=== PATIENT | female | born 1950 | race Caucasian/White ===

== ENCOUNTER → 2018-03-15 09:52 | Outpatient (CLI) | payer MEDICARE, SELFPAY ==
[2018-03-15 11:20] LABS: Calcium 9.4 mg/dL (8.5-10.1); Free T4 (Free Thyroxine) 1.15 ng/dl (0.76-1.46); Thyroid Stimulating Hormone 1.59 uIU/ml (0.358-3.740)
[2018-03-16 20:13] LABS: Thyroid Peroxidase Antibodies 15 IU/mL (0-34)
[2018-03-20 06:12] LABS: Calcitonin 3.2 pg/mL (0.0-5.0)
[2018-03-20 06:14] LABS: Thyroid Stimulating Immunoglob <0.10 IU/L (0.00-0.55)
== END ==
PROVIDERS: PCP Family Medicine; Visit Provider Otolaryngology
DX: E07.9 Disorder of thyroid, unspecified (principal); E01.0 Iodine-deficiency related diffuse (endemic) goiter; J34.2 Deviated nasal septum
CPT/HCPCS: 36415; 82308; 82310; 83520; 84439; 84443; 86376

== ENCOUNTER → 2018-03-25 13:30 | Outpatient (CLI) | payer MEDICARE, SELFPAY ==
--- NOTE | 2018-03-25 13:35 | US_ITS ---
ULTRASOUND THYROID PROCEDURE: Multiple sagittal & transverse ultrasound images of the thyroid. HISTORY: Thyromegaly Thyroid scan at [facility]. Nodule noted COMPARISON: None ----- FINDINGS: --RIGHT LOBE: 3.4 cm x length 1.8 cm wide x 0.9 cm AP Nodule A:... 5 mm x 4.4 mm x 3 mmUpper pole debris-filled cyst vs semisolid nodule Nodule B:... 6.6 mm x 6.2 mm x 4.2 mm AP likely slightly debris-filled cyst anterior aspect midportion right lobe --LEFT LOBE: 3.9 cm length x 1.5 cm wide x 1.2 cm AP Nodule A: Dominant primarily inhomogeneous solid nodule posterior aspect left lobe inferiorly, This measures 1.44 cm length x0.8 transversex 0.92 cm AP .. More likely thyroid nodule but conceivably could be related to parathyroid nodule given its location. Color Doppler flow observed to both right and left lobe, & is slightly more pronounced than left --ISTHMUS: --Normal AP thickness = 3.3 mm AP small hypoechoic solid nodule left aspect of isthmus measures 4.3 mm transverse x 1.2 mm AP ---IMPRESSION--- Bilateral thyroid nodules Largest solid is seen at the posterior aspect of the inferior left lobe. It measures 1.44 cm length maximally Left lobe upper normal in size
== END ==
PROVIDERS: PCP Family Medicine; Visit Provider Otolaryngology
DX: E07.9 Disorder of thyroid, unspecified (principal); E01.0 Iodine-deficiency related diffuse (endemic) goiter; J34.2 Deviated nasal septum
CPT/HCPCS: 76536

== ENCOUNTER → 2018-09-16 15:48 | Outpatient (CLI) | payer MEDICARE, SELFPAY ==
[2018-09-18 14:42] LABS: Thyroid Peroxidase Antibodies 12 IU/mL (0-34)
[2018-09-19 15:19] LABS: Thyroid Stimulating Immunoglob <0.10 IU/L (0.00-0.55)
== END ==
PROVIDERS: PCP Family Medicine; Visit Provider Otolaryngology
DX: E01.0 Iodine-deficiency related diffuse (endemic) goiter (principal); E04.9 Nontoxic goiter, unspecified
CPT/HCPCS: 36415; 84445; 86376

== ENCOUNTER → 2018-09-23 15:39 | Outpatient (CLI) | payer MEDICARE, SELFPAY ==
--- NOTE | 2018-09-23 15:43 | US_ITS ---
US thyroid HISTORY: Follow-up thyroid nodules ITS.REASON: nodule ORDERING PHYSICIAN: Oc Hicks MD PATIENT AGE: 67 years Comparison: 03/25/2018 FINDINGS: The right lobe of the thyroid gland measures 3.1 x 1.7 x 1.5 cm. Nodule A: 4 mm cystic lesion mid polar region. Unchanged. Nodule B: 6 mm mostly cystic nodule mid polar region unchanged. The left lobe measures 3.6 x 1.4 x 1.5 cm. Nodule A: Hypoechoic 3 mm nodule mid pole not demonstrated previously. Nodule B: Heterogeneous 13 x 9 mm mostly solid-appearing nodule mid polar region unchanged. There is some increased vascularity around this nodule with a cystic component along the lower pole. Cystic nodule in the isthmus on the left at 4 mm IMPRESSION: Stable appearing bilateral thyroid nodules with the largest nodule on the left at 13 x 9 mm
== END ==
PROVIDERS: PCP Family Medicine; Visit Provider Otolaryngology
DX: E04.9 Nontoxic goiter, unspecified (principal)
CPT/HCPCS: 76536

== ENCOUNTER → 2019-04-02 12:54 | Outpatient (CLI) | payer MEDICARE, SELFPAY ==
--- NOTE | 2019-04-02 12:57 | US_ITS ---
US thyroid HISTORY: ITS.REASON: Enlarged thyroid ORDERING PHYSICIAN: Oc Hicks MD PATIENT AGE: 68 years Comparison: 09/23/2018 FINDINGS: There is a oval hypoechoic nodule in the isthmus on the left measuring 5 mm unchanged. The right lobe is 3.3 x 1.3 x 1.3 cm. There is a 5 mm cyst in the upper pole, a 5 mm cyst in the lower pole, and other smaller cysts also noted. The left lobe is 4 x 1.2 x 1.5 cm with a 4 mm cyst in the midpole. There is a solid 1.2 cm cyst in the midpole with a cystic component laterally not significant changed. Another small cyst is present in the lower pole at 4 mm. IMPRESSION: Bilateral thyroid nodules most of which are cystic unchanged. No change in the mixed cystic and solid nodule in the lower pole on the left.
== END ==
PROVIDERS: PCP Family Medicine; Visit Provider Otolaryngology
DX: E01.0 Iodine-deficiency related diffuse (endemic) goiter (principal)
CPT/HCPCS: 76536

== ENCOUNTER → 2019-09-19 12:52 | Outpatient (CLI) | payer MEDICARE, SELFPAY ==
--- NOTE | 2019-09-19 12:52 | US_ITS ---
PROCEDURE: US THYROID CLINICAL INDICATION: Goiter Follow-up goiter/nodules COMPARISON: THY US thyroid from 09/23/2018 THY US thyroid from 04/02/2019 FINDINGS: Right lobe: 3.7 x 1.5 x 1.1 cm. Stable 5 mm mixed nodule upper pole right lobe with a small area of increased echogenicity centrally 5 mm cyst lower pole stable Left lobe: 4.3 x 1.3 x 1.8 cm. Stable 4 mm cyst mid polar region 13 x 9 mm stable mixed nodule mostly solid in the lower pole with a cystic component inferiorly. Stable 4 mm cyst lower pole Isthmus: 4 mm hypoechoic nodule in the isthmus centrally unchanged Additional findings: IMPRESSION: Stable bilateral thyroid nodules. Recommend 1 year follow-up. Dictated by: Jase Dunne MD 09/19/2019 18:39 Electronically signed by Jase Dunne MD in [place] 09/19/2019 18:39
== END ==
PROVIDERS: PCP Family Medicine; Visit Provider Otolaryngology
DX: E04.9 Nontoxic goiter, unspecified (principal)
CPT/HCPCS: 76536